=== PATIENT | female | born 1990 | race Caucasian/White ===

== ENCOUNTER 2016-06-25 08:52 | Emergency (ER) | payer MEDICAID ==
[~2016-06-25] VITALS: Ht 154.9 cm; Wt 60.0 kg
[~2016-06-25 08:52] MED LIST: PRED20 PO; TRI-TAB PO
[2016-06-25 08:57] VITALS: BP 124/74; PULSE 74; RESP 16; TEMP 98; O2SAT 99
--- NOTE | 2016-06-25 09:30 | PD ---
HPI Chief Complaint: Medical Clearance Time Seen by Provider: 09:10 Travel History International Travel<30 days: No Contact w/Intl Traveler<30days: No Traveled to known affect area: No History of Present Illness HPI 25-year-old female presents to the emergency room requesting echocardiogram. Patient was told by for hospitalization site 2 days ago that she should have an outpatient echocardiogram. She called [facility] this morning and was told on the phone that this could be performed as an outpatient in the emergency room. Patient presented to [facility] for shortness of breath. She continues to have shortness of breath that is worse when lying down, like she can't take a deep enough breath in. Denies history of asthma or heart disease. Denies any other symptoms. She presents with her discharge instructions and summary which states she had an EKG, CBC, CMP, d-dimer, troponin, TSH, drug screen, and chest x-ray. Patient states her workup was entirely negative. She has a list of blood work which is unremarkable. Troponin is less than 0.01. D- dimer is 0.27. Amphetamine toxicology screen is negative. TSH is within normal limits. After being told in the ED that we do not typically perform outpatient echocardiograms for nonemergent reasons, patient made an appointment with her primary care physician at 1:00 today for referral. History Past Medical Histgory Hx Cancer: No Social History Alcohol Use: Yes (OCC) Tobacco Use: Yes (3 CIGARETTES DAILY) Allergies-Medications (Allergen,Severity, Reaction): Coded Allergies: No Known Allergies (Verified , 06/25/16) Reported Meds & Prescriptions Reported Meds & Active Scripts Active Tri-Sprintec (Ethinyl Estradiol/Norgestimate) 1 Tab Tab 1 Tab PO DAILY Deltasone (Prednisone) 20 Mg Tab 20 Mg PO BID Review of Systems Except as stated in HPI: all other systems reviewed are Neg Physical Exam Narrative GENERAL: Well-nourished, well-developed female in no acute distress. Afebrile. Ambulatory. SKIN: Warm and dry. HEAD: Normocephalic. EYES: No scleral icterus. No injection or drainage. NECK: Supple, trachea midline. No JVD or lymphadenopathy. CARDIOVASCULAR: Regular rate and rhythm. No murmurs appreciated. RESPIRATORY: Breath sounds equal bilaterally. No accessory muscle use. Data Data Last Documented VS Vital Signs Date Time Temp Pulse Resp B/P Pulse Ox O2 Delivery O2 Flow Rate FiO2 06/25/16 08:57 98.0 74 16 124/74 99 MDM Medical Screen Exam Complete: Yes Emergency Medical Condition: No Differential Diagnosis Shortness of breath Narrative Course 25-year-old female presents to the emergency room requesting outpatient echocardiogram. She was told to days ago to obtain and echocardiogram by the emergency room physician at [facility] after presenting for shortness of breath and having a completely negative workup. Patient is well- appearing in the emergency room. Resting comfortably in bed. Playing on her phone. Vital signs stable. In no distress. Lungs sounds clear and equal bilaterally. No appreciable murmurs on exam. She has an appointment with her primary care physician at 1:00 PM today to get a referral for the echocardiogram. There are no urgent or emergent medical conditions at this time. A medical screening exam was performed: At the time of evaluation the presenting medical condition was determined not to be of an emergent nature. The patient was given the option of receiving additional care, but declined. Patient was given options for additional community resources from which to obtain care. The Patient Has Been advised to seek medical attention for their presenting complaint. The patient has been advised to return to the ER at any time if an emergent condition develops. Primary Impression: Encounter for medical screening examination Disposition: 01 DISCHARGE HOME Condition: Stable Natali Allison Jun 25, 2016 09:30
[2016-08-06] MEDS ORDERED: TRI-TAB PO (15:44)
[2016-09-17] MEDS ORDERED: TRI-TAB PO (13:11)
== END 2016-06-25 09:40 | disposition left against medical advice (07) ==
LOC: NEPB 08:52
DX: Z72.0 Tobacco use (principal)
CPT/HCPCS: 99281